=== PATIENT | female | born 1990 | race Caucasian/White ===

== ENCOUNTER 2017-09-19 20:57 | Outpatient (CLI) | payer OTHER ==
[~2017-09-19] VITALS: Ht 160 cm; Wt 67.7 kg
[~2017-09-19 20:57] MED LIST: NITR100C56 PO; PREN1TAB60 PO
== END 2017-09-19 23:00 | disposition home or self-care (01) ==
LOC: LDOP 20:57
PROVIDERS: ATTEND Obstetrics & Gynecology
DX: O62.9 Abnormality of forces of labor, unspecified (principal); O48.0 Post-term pregnancy; Z3A.40 40 weeks gestation of pregnancy
CPT/HCPCS: 59025; 99211; G0463